=== PATIENT | male | born 1995 ===

== ENCOUNTER 2017-10-23 10:56 | Emergency (ER) | payer BC ==
[2017-10-23 11:10] VITALS: BP 124/60; PULSE 82; RESP 18; TEMP 98.4
--- NOTE | 2017-10-23 11:26 | ED ---
General Adult HPI - General Chief complaint: Extremity Injury, Lower Stated complaint: rolled left ankle Time Seen by Provider: 10/23/17 11:17 Source: patient, RN notes reviewed Mode of arrival: wheelchair Limitations: no limitations - History of Present Illness Initial comments: 22-year-old male with no significant past medical history presents for evaluation of left ankle pain. Patient was play basketball yesterday evening, inverted his left ankle. He was ambulatory after the injury, head pain with movement. Patient worsened over the evening, patient noted some swelling this morning. He has been bearing weight without difficulty. He currently has no pain. He states he took Motrin prior to arrival.no other injuries. No other complaints. - Related Data Home Medications Medication Instructions Recorded Confirmed Acetaminophen Tab [Tylenol Tab] 500 mg PO ONCE PRN 10/23/17 10/23/17 Ibuprofen [Advil] 400 mg PO Q4-6H PRN 10/23/17 10/23/17 Previous Rx's Medication Instructions Recorded Ibuprofen [Motrin] 600 mg PO Q8HR PRN #24 tab 10/23/17 Allergies Allergy/AdvReac Type Severity Reaction Status Date / Time No Known Allergies Allergy Verified 10/23/17 11:23 Review of Systems ROS Statement: Those systems with pertinent positive or pertinent negative responses have been documented in the HPI. ROS Other: All systems not noted in ROS Statement are negative. Past Medical History Past Medical History: No Reported History History of Any Multi-Drug Resistant Organisms: None Reported Past Surgical History: No Surgical Hx Reported Past Psychological History: No Psychological Hx Reported Smoking Status: Never smoker Past Alcohol Use History: None Reported Past Drug Use History: None Reported General Exam Limitations: no limitations General appearance: alert, in no apparent distress Head exam: Present: atraumatic, normocephalic Eye exam: Present: normal appearance, PERRL ENT exam: Present: normal exam Neck exam: Present: normal inspection Respiratory exam: Present: normal lung sounds bilaterally. Absent: respiratory distress Cardiovascular Exam: Present: regular rate, normal rhythm GI/Abdominal exam: Present: soft. Absent: distended, tenderness Extremities exam: Present: other (Left ankle: No bony tenderness, mild swelling in the proximal midfoot, no tenderness. Knee within normal limits. Neurovascular intact) Neurological exam: Present: alert, oriented X3 Psychiatric exam: Present: normal affect, normal mood Skin exam: Present: warm, dry, intact Course Vital Signs 11/24/17 11:08 Temperature 98.4 F Pulse Rate 82 Respiratory 18 Rate Blood Pressure 124/60 O2 Sat by Pulse 98 Oximetry Medical Decision Making - Medical Decision Making 22-year-old male with left ankle injury. X-ray obtained, negative for fracture dislocation. Exam within normal limits. Patient pain-free in the emergency department. He will follow-up with his primary care physician. Return to emergency department with worsening symptoms. Disposition Clinical Impression: Ankle sprain and strain Disposition: HOME SELF-CARE Condition: Good Instructions: Ankle Sprain (ED) Prescriptions: Ibuprofen [Motrin] 600 mg PO Q8HR PRN #24 tab PRN Reason: Pain Referrals: None,Stated [REFERRING] - 1-2 days Time of Disposition: 12:18
--- NOTE | 2017-10-23 11:59 | XR ---
EXAMINATION TYPE: XR ankle complete LT DATE OF EXAM: 10/23/2017 COMPARISON: NONE HISTORY: 22-year-old male with pain after rolling injury TECHNIQUE: 3 views FINDINGS: Ankle mortise is congruent with preservation of the distal tibiofibular overlap. Talar dome is intact . No acute fracture, subluxation, or dislocation seen. Mild capsular swelling of the talonavicular eliud int on the lateral view. Small delineation to the Achilles tendon. Subtalar joint is aligned. IMPRESSION: No acute osseous abnormality seen.
== END 2017-10-23 12:34 | disposition home or self-care (01) ==
LOC: EC 10:56
DX: S93.402A Sprain of unspecified ligament of left ankle, initial encounter (principal); X50.1XXA Overexertion from prolonged static or awkward postures, initial encounter; Y93.67 Activity, basketball
CPT/HCPCS: 99283